=== PATIENT | male | born 2000 | race Hispanic/Latino ===

== ENCOUNTER 2020-05-23 12:48 | Emergency (ER) | payer BC, SELFPAY ==
[2020-05-23 12:50] VITALS: BP 161/107; PULSE 86; RESP 16; TEMP 36.4; O2SAT 100
--- NOTE | 2020-05-23 12:57 | ED_ITS ---
HPI - General Adult General Chief complaint: Syncope Stated complaint: near syncopal Time Seen by Provider: 05/23/20 12:57 History of Present Illness HPI narrative: I went in the room to examine this patient and he informs me that he is leaving the emergency room now. He has a family member with him. He says he needs to go to work now. He displayed competence in making this decision. He will be leaving the emergency room now. I did not do a history and physical on this patient. I told him to come back to the emergency room at any point for further evaluation and care. Related Data Home Medications Medication Instructions Recorded Confirmed No Home Medications 01/19/20 02/10/20 Allergies Allergy/AdvReac Type Severity Reaction Status Date / Time No Known Allergies Allergy Verified 02/10/20 08:52 [facility] Past Medical History Medical History History of seizure Social History Social History Alcohol intake: never Course Vital Signs Vital signs: Vital Signs Temperature 36.4 C 05/23/20 12:50 Pulse Rate 86 05/23/20 12:50 Respiratory Rate 16 05/23/20 12:50 Blood Pressure 161/107 H 05/23/20 12:50 Pulse Oximetry 100 05/23/20 12:50 Temperature 36.4 C 05/23/20 12:50 Pulse Rate 86 05/23/20 12:50 Respiratory Rate 16 05/23/20 12:50 Blood Pressure 161/107 H 05/23/20 12:50 Pulse Oximetry 100 05/23/20 12:50 Medical Decision Making Vital Signs Vital Signs: Vital Signs Temperature 36.4 C 05/23/20 12:50 Pulse Rate 86 05/23/20 12:50 Respiratory Rate 16 05/23/20 12:50 Blood Pressure 161/107 H 05/23/20 12:50 Pulse Oximetry 100 05/23/20 12:50 Temperature 36.4 C 05/23/20 12:50 Pulse Rate 86 05/23/20 12:50 Respiratory Rate 16 05/23/20 12:50 Blood Pressure 161/107 H 05/23/20 12:50 Pulse Oximetry 100 05/23/20 12:50 Discharge Plan Discharge Patient Disposition: Left Without Being Seen Prescriptions: No Action No Home Medications RF: 0 Follow-up/Referrals: Gurpreet Brandt MD [Primary Care Provider] -
--- NOTE | 2020-05-23 13:15 | PC.NURSE ---
Pt states he just wants a CT scan and states that he doesn't want to be seen by EDP. Pt states im just going to leave because i have to go to work
== END 2020-05-23 13:15 | disposition left against medical advice (07) ==
PROVIDERS: Emergency Provider Emergency Medicine; PCP Emergency Medicine
DX: R55 Syncope and collapse (principal)
CPT/HCPCS: 99199

== ENCOUNTER 2020-06-13 07:23 | Outpatient (CLI) | payer BC, SELFPAY ==
--- NOTE | ~2020-06-13 | US_ITS ---
EXAMINATION: US right upper quadrant DATE: 06/13/2020 07:55 INDICATION: Elevated liver function tests TECHNIQUE: Multiple grayscale and Doppler ultrasound images of the abdomen were obtained. COMPARISON: None available FINDINGS: Bowel gas obscures visualization of the pancreas. The visualized portions of the pancreas a re unremarkable. The liver is normal with normal echogenicity and echotexture. No surface nodularity. Normal hepatopetal flow in the main portal vein. The gallbladder is normal with no abnormal wall thi ckening, pericholecystic fluid or stones. The normal common bile duct measures 4 mm. There was no son ographic Mar sign. IMPRESSION: 1. No sonographic correlate for the patient's symptoms. Reviewed, dictated and finalized at location B.
[2020-06-13 11:15] LABS: Hepatitis B Surface Antigen Negative (Negative)
[2020-06-13 11:21] LABS: HAV RESULT Negative (Negative); Hepatitis B Core IgM Result Negative (Negative)
[2020-06-13 11:34] LABS: Hepatitis C Virus Antibody Negative (Negative)
== END 2020-06-13 07:24 | disposition home or self-care (01) ==
PROVIDERS: PCP Emergency Medicine; Visit Provider Emergency Medicine
DX: R74.8 Abnormal levels of other serum enzymes (principal)
CPT/HCPCS: 36415; 76705; 80074

== ENCOUNTER 2020-07-13 08:42 | Outpatient (CLI) | payer BC, SELFPAY ==
--- NOTE | 2020-07-13 16:20 | P.NEURO_ITS ---
Neurology EEG Report General Information Date of Study: 07/13/20 TEST eeg DIAGNOSIS seizures CONDITION OF RECORDING awake drowsy and sleep EEG NUMBER [id number] CLINICAL HISTORY patient reported about once a year he feels funny, develops tunnel vision and then becomes unconscious for a minute or 2 and then goes back to normal afterwards EEG DESCRIPTION basic resting occipital frequency consists of moderate amount of fairly well- organized low voltage 11 to 13 hertz per second alpha admixed and superimposed by low-voltage 15 to 18 hertz per second beta. During drowsiness low-voltage beta activity seen diffusely admixed with waxing and waning posterior alpha rhythm. Hyperventilation not done. Photic stimulation produced poor drive. Non paroxysmal. Nonfocal. Nonlateralizing. IMPRESSION No significant abnormalities noted
== END 2020-07-13 08:43 | disposition home or self-care (01) ==
PROVIDERS: PCP Emergency Medicine; Visit Provider Psychiatry & Neurology Neurology
DX: R56.9 Unspecified convulsions (principal)
CPT/HCPCS: 95816

== ENCOUNTER 2020-12-21 13:20 | Outpatient (CLI) | payer BC, SELFPAY ==
--- NOTE | ~2020-12-21 | XR_ITS ---
LUMBAR SPINE INDICATION: Back pain TECHNIQUE: 3 views lumbar spine COMPARISON: None FINDINGS: No fracture, subluxation or dislocation. No evidence for spondylolysis or spondylolisthesi s. Vertebral bodies are preserved. Mild disc narrowing at L4-5 and L5 IMPRESSION: 1: Mild lower lumbar disc narrowing.. Reviewed, dictated and finalized at location B.
== END 2020-12-21 13:21 | disposition home or self-care (01) ==
LOC: ANHIMG 13:26
PROVIDERS: PCP Emergency Medicine; Visit Provider Emergency Medicine
DX: M54.9 Dorsalgia, unspecified (principal)
CPT/HCPCS: 72100

== ENCOUNTER 2020-12-28 15:08 | Outpatient (CLI) | payer BC, SELFPAY ==
--- NOTE | ~2020-12-28 | MR_ITS ---
EXAMINATION: MR brain/brain stem wo con EXAM DATE: 12/28/2020 16:04 INDICATION: Seizures. TECHNIQUE: Magnetic resonance imaging (MRI) of the brain/brain stem obtained without contrast. Luis Manuel al T1, axial diffusion, gradient echo (T2*), T1, T2, FLAIR sequences obtained. Seizure protocol was u tilized including high-resolution coronal images through the hippocampi. There is no prior study f or comparison. FINDINGS: There is mild periventricular T2 hyperintensity which is nonspecific. Some considerations i nclude old periventricular leukomalacia (PVL, was patient delivered ?), premature chronic smal l vessel ischemic disease (any cardiovascular risk factors?), migraine headaches, demyelinating disea se such as multiple sclerosis or acute disseminated encephalomyelitis (ADEM), vasculopathy, lyme's di sease or reactive astrocytosis (gliosis) secondary to nonspecific etiology. The hippocampi are symmetric and are without signal abnormality identified. There are no shukla matter heterotopias identified or evidence of cortical dysplasia. There are no areas of restricted diffusion to suggest acute infarction. There is no acute hemorrhage seen on the T2*, a hemosiderin sensitive sequence. No intraparenchymal brain mass. The ventricles a re normal in size. There are no extra-axial collections. Flow voids are seen in the cerebral arteri es on the T2-weighted sequences consistent with their expected patency. The orbits are unremarkable. Soft tissue is unremarkable. IMPRESSION: Mild nonspecific periventricular hyperintensity, abnormal for patient's age. Reviewed, dictated and finalized at location A. IMPRESSION: Mild nonspecific periventricular hyperintensity, abnormal for patie nt's age.
== END 2020-12-28 15:09 | disposition home or self-care (01) ==
LOC: ANHIMG 15:12
PROVIDERS: PCP Emergency Medicine; Visit Provider Psychiatry & Neurology Neurology
DX: R56.9 Unspecified convulsions (principal)
CPT/HCPCS: 70551

== ENCOUNTER 2021-02-22 13:03 | Outpatient (CLI) | payer BC, SELFPAY ==
[2021-02-22 13:51] LABS: Hematocrit 47.8 % (42.0-52.0); Hemoglobin 16.7 g/dL (14.0-18.0); Mean Corpuscular HGB Conc 34.9 g/dl (32-36); Mean Corpuscular Hemoglobin 31.9 pg (26-34); Mean Corpuscular Volume 91.4 fl (80-100); Mean Platelet Volume 8.6 fl (7.4-10.4); Platelet Count Result 262 k/mm3 (150-375); Red Blood Count 5.23 M/mm3 (4.6-6.20); Red Cell Distribution Width 12.3 % (11.5-14.5); White Blood Count 5.2 K/mm3 (4.5-10.0)
[2021-02-22 13:54] LABS: Add Urine Microscopic? NO; Appearance Urine Clear (Clear); Bilirubin Urine Negative (Negative); Blood Urine Negative (Negative); Color Urine Yellow (Yellow); Glucose Urine UA Negative (Negative); Ketones Urine Negative (Negative); Leukocyte Esterase Ur Negative LEU/UL (NEGATIVE); Nitrate Urine Negative (Negative); Protein Urine Negative (Negative); Specific Grav Ur 1.026 (1.001-1.035); Urobilinogen Urine Negative mg/dL (<2.0)
[2021-02-22 14:20] LABS: Rapid Plasma Reagin Non-Reactive (NonReactive)
[2021-02-22 14:36] LABS: HIV 1/2 Ab P24 Ag Result Negative (Negative)
[2021-02-22 15:25] LABS: Hepatitis B Surface Antigen Negative (Negative)
[2021-02-22 15:31] LABS: HAV RESULT Negative (Negative); Hepatitis B Core IgM Result Negative (Negative)
[2021-02-22 15:42] LABS: Hepatitis C Virus Antibody Negative (Negative)
== END 2021-02-22 13:04 | disposition home or self-care (01) ==
LOC: ANHIMG 13:05
PROVIDERS: PCP Emergency Medicine; Visit Provider Emergency Medicine
DX: R59.0 Localized enlarged lymph nodes (principal); R10.9 Unspecified abdominal pain
CPT/HCPCS: 36415; 80074; 81003; 85027; 86592; 86703; 87086; 87491; 87591; G0432

== ENCOUNTER 2021-03-01 08:49 | Outpatient (CLI) | payer BC, SELFPAY ==
--- NOTE | ~2021-03-01 | US_ITS ---
EXAMINATION: US abdomen complete EXAM DATE: 03/01/2021 10:34 INDICATION: Low abdominal pain. TECHNIQUE: Multiple grayscale and Doppler images of the complete abdomen were obtained (by a technolo gist who performed the scan) and subsequently reviewed. Comparison is made to prior examination from 06/13/2020. FINDINGS: The abdominal aorta is normal in caliber. Visualized portion IVC is patent. The pancreatic head a nd body are normal in appearance. The pancreatic tail is not visualized. The liver has normal echogenicity and contour. There are no focal liver lesions identified. There is no evidence of intrahepatic biliary duct dilation. Portal venous flow was seen in the hepatopedal , normal direction and has normal Doppler waveform. Common bile duct measures 3 mm, which is normal. The gallbladder wall is normal in thickness, with mo derate amount of distention. No sonographic evidence of pericholecystic fluid. There is no cholelit hiases. Technologist performing exam reports patient did not demonstrate sonographic Mar's sign. Please note that this sign is less reliable in patients who have received pain medication. Right kidney: There is normal contour and echogenicity. It measures 9.7 x 3.6 x 5.5 centimeters. T here are no focal renal lesions identified. There is no hydronephrosis. Left kidney: There is normal contour and echogenicity. It measures 10.2 x 5.1 x 4.5 centimeters. T here are no focal renal lesions identified. There is no hydronephrosis. The spleen measures 10.7 centimeters and is morphologically normal. IMPRESSION: 1. Unremarkable complete abdominal ultrasound exam. Reviewed, dictated and finalized at location A. [employer]
== END 2021-03-01 08:50 | disposition home or self-care (01) ==
LOC: ANHIMG 08:52
PROVIDERS: PCP Emergency Medicine; Visit Provider Emergency Medicine
DX: R10.9 Unspecified abdominal pain (principal)
CPT/HCPCS: 76700

== ENCOUNTER 2023-03-14 12:33 | Emergency (ER) | payer BC, SELFPAY ==
[2023-03-14 12:47] VITALS: BP 128/69; PULSE 66; RESP 16; TEMP 37.2; O2SAT 99
--- NOTE | 2023-03-14 13:08 | ED.URI ---
HPI - URI/Sore Throat General Chief Complaint: Upper Respiratory Infection Stated Complaint: cough Time Seen by Provider: 03/14/23 13:09 Source: patient Mode of arrival: ambulatory Limitations: no limitations History of Present Illness HPI Narrative: 22-year-old male presented for complaint of mild nasal congestion and cough for about 2 weeks. He states I do not feel sick I just want a checkup. He has been taking Tylenol along with home remedies such as tea and tumeric. He denies shortness of breath, wheezing, nausea, vomiting, diarrhea, fevers or chills. Related Data Home Medications Medication Instructions Recorded Confirmed No Home Medications 01/19/20 06/26/20 Allergies Allergy/AdvReac Type Severity Reaction Status Date / Time No Known Allergies Allergy Verified 06/26/20 14:50 Review of Systems Review of Systems: CONSTITUTIONAL: Denies body aches, fever, chills, or sweats. EYES: Denies visual changes, redness, or discharge. ENT: reports nasal congestion, denies sore throat, or otalgia. CARDIOVASCULAR: Denies chest pain, palpitations, or edema. RESPIRATORY: Denies dyspnea. GASTROINTESTINAL: Denies abdominal pain, nausea, vomiting, or diarrhea. SKIN: Denies rash, itching, or wounds. MUSCULOSKELETAL: Denies back pain, joint pain, or myalgia. NEUROLOGIC: Denies headache, numbness, tingling, or weakness. All systems reviewed & are unremarkable except as noted in HPI and below PMFSH Past Medical History Medical History History of seizure Surgical History Surgical History H/O eye surgery Family History Family History Father Seizure Social History Social History Social History: never smoker Smoking status: Never smoker Alcohol intake: never Living arrangements: with family Occupation/Education: student Comments At time of signature, I have reviewed and agree with nursing past medical, surgical, social and family history unless otherwise noted. Please see nursing chart for further information. There is no relevant family history pertinent to the presenting complaint Exam Narrative: GENERAL: Well-appearing EYES: EOMI. No redness or drainage. Conjunctivae normal. ENT: Mucous membranes pink and moist. No rhinorrhea. TMs normal bilaterally. Throat normal. Uvula midline. NECK: Normal AROM. Supple. No lymphadenopathy. CHEST: No respiratory distress. Clear to auscultation. HEART: Regular rate and rhythm. No murmur appreciated. Normal peripheral pulses. ABDOMEN: Soft, nontender, nondistended, normal active bowel sounds. SKIN: Warm, dry, no rash. Capillary refill normal. Normal skin turgor. NEURO: No focal deficits. Alert and oriented x3. Gait steady. PSYCH: Normal affect. Course Course Emergency Course: Patient is aware of diagnosis, understands and agrees to treatment plan. Anticipatory guidance given. Patient agrees to follow-up as directed and is aware of reasons to seek care at the emergency department. Portions of this record may have been created with voice recognition software Level of Care: Express Care Visit Vital Signs Vital signs: Vital Signs Temperature 98.9 F 03/14/23 12:47 Pulse Rate 66 03/14/23 12:47 Respiratory Rate 16 03/14/23 12:47 Blood Pressure 128/69 03/14/23 12:47 Pulse Oximetry 99 03/14/23 12:47 Oxygen Delivery Room Air 03/14/23 12:47 Temperature 98.9 F 03/14/23 12:47 Pulse Rate 66 03/14/23 12:47 Respiratory Rate 16 03/14/23 12:47 Blood Pressure 128/69 03/14/23 12:47 Pulse Oximetry 99 03/14/23 12:47 Oxygen Delivery Room Air 03/14/23 12:47 MDM - URI/Sore Throat MDM Narrative Medical decision making narrative: Discussed physical exam findings. Advised supportive
== END 2023-03-14 13:26 | disposition home or self-care (01) ==
PROVIDERS: Emergency Provider Nurse Practitioner Family; PCP Emergency Medicine
DX: J06.9 Acute upper respiratory infection, unspecified (principal)
CPT/HCPCS: 99211; G0463